=== PATIENT | male | born 1955 | race Caucasian/White ===

== ENCOUNTER 2023-08-13 16:48 | Inpatient (IN) ==
[2023-08-13 17:34] LABS: ABS Basophils 0.1 10^3/uL (0.0-0.1); ABS Lymphocytes 0.9 10^3/uL (1.0-4.8); ABS Monocytes 0.7 10^3/uL (0.0-1.1); ABS Neutrophils 3.8 10^3/uL (1.5-7.6); ABS Nucleated RBC 0.02 10^3/ul; Hematocrit 50.7 % (38-53); Hemoglobin 17.2 g/dL (13.2-16.3); Lymphocyte % 16.5 %; Mean Corpuscular Hemoglobin 30.9 pg (27-33); Mean Corpuscular Hgb Conc 33.8 g/dL (31-36); Mean Corpuscular Volume 91.3 fL (80-97); Mean Platelet Volume 7.4 fL (7.5-11.2); Nucleated Red Blood Cells % 0.4 %/100WBC (0.0-0.8); Platelet Count 117 10^3/uL (150-450); Red Blood Count 5.56 10^6/uL (4.06-5.63); Red Cell Distribution Width 14.3 % (12-17); White Blood Count 5.5 10^3/uL (3.6-10.2)
[2023-08-13] MEDS ORDERED: Albuterol/Ipratropium NEB.SOL (2.5/0.5 MG) 3 ML NEB.SOLN INH ONE (17:37)
[2023-08-13 17:53] LABS: Albumin/Globulin Ratio 1.3 (1-3); C Reactive Protein 18.33 mg/L (<8.01); Calcium 8.6 mg/dL (8.6-10.3); Creatinine, Serum 1.64 mg/dL (0.67-1.17); Potassium 4.5 mmol/L (3.5-5.0); Total Bilirubin 0.6 mg/dL (0.2-1.0)
[2023-08-13 19:06] LABS: High Sensitivity Troponin 1 Hr 141 pg/mL (<20)
[2023-08-13] MEDS ORDERED: Albuterol 2.5mg/3 ml (0.083%) NEB.SOLN INH ONE ×2 (19:08→20:45)
[2023-08-13] MEDS ORDERED: Albuterol (2.5 MG) 0.5 % CONC 0.5 ML NEB.SOLN INH ONE (21:31)
[2023-08-13] MEDS ORDERED: methylPREDNISolone SOD SUCC 125 mg 2 ML VIAL IV ONE (21:37)
[2023-08-13 21:57] LABS: PCO2 Arterial 39 mmHg (35-45); PO2 Arterial 141 mmHg (80-100)
[2023-08-13] MEDS: cefTRIAXone 1 gm/50 mL D5W 1 GM/50 ML BAG IV SCH (22:19)
[2023-08-13] MEDS: Enoxaparin 40 MG/0.4 ML SYR SUBCUT SCH (22:19)
[2023-08-14] MEDS ORDERED: Albuterol (2.5 MG) 0.5 % CONC 0.5 ML NEB.SOLN INH PRN (02:29)
[2023-08-14] MEDS: Albuterol/Ipratropium NEB.SOL (2.5/0.5 MG) 3 ML NEB.SOLN INH SCH ×6 (02:57→23:19)
[2023-08-14 06:05] LABS: ABS Lymphocytes 0.3 10^3/uL (1.0-4.8); ABS Monocytes 0.1 10^3/uL (0.0-1.1); ABS Neutrophils 1.9 10^3/uL (1.5-7.6); ABS Nucleated RBC 0.01 10^3/ul; Hematocrit 46.4 % (38-53); Hemoglobin 16.2 g/dL (13.2-16.3); Lymphocyte % 13.5 %; Mean Corpuscular Hemoglobin 31.4 pg (27-33); Mean Corpuscular Hgb Conc 34.9 g/dL (31-36); Mean Corpuscular Volume 90.2 fL (80-97); Mean Platelet Volume 7.2 fL (7.5-11.2); Nucleated Red Blood Cells % 0.2 %/100WBC (0.0-0.8); Platelet Count 110 10^3/uL (150-450); Red Blood Count 5.14 10^6/uL (4.06-5.63); Red Cell Distribution Width 13.9 % (12-17); White Blood Count 2.4 10^3/uL (3.6-10.2)
[2023-08-14 06:22] LABS: Calcium 8.6 mg/dL (8.6-10.3); Creatinine, Serum 1.83 mg/dL (0.67-1.17); HDL Cholesterol 36.6 mg/dL; Potassium 3.9 mmol/L (3.5-5.0); eGFR CKD-EPI 39.5 (>60)
[2023-08-14] MEDS: Aspirin EC 81 mg TAB.EC (enteric coated) PO SCH (08:45)
[2023-08-14] MEDS: methylPREDNISolone SOD SUCC 40 mg/ml 1 ml VIAL IV SCH ×2 (12:39→22:41)
[2023-08-14] MEDS: Enoxaparin 40 MG/0.4 ML SYR SUBCUT SCH (22:42)
[2023-08-14] MEDS: cefTRIAXone 1 gm/50 mL D5W 1 GM/50 ML BAG IV SCH (22:45)
[2023-08-15] MEDS: methylPREDNISolone SOD SUCC 40 mg/ml 1 ml VIAL IV SCH ×3 (03:46→19:44)
[2023-08-15] MEDS: Albuterol/Ipratropium NEB.SOL (2.5/0.5 MG) 3 ML NEB.SOLN INH SCH ×4 (04:04→19:45)
[2023-08-15 06:47] LABS: ABS Basophils 0.1 10^3/uL (0.0-0.1); ABS Lymphocytes 0.4 10^3/uL (1.0-4.8); ABS Monocytes 0.4 10^3/uL (0.0-1.1); ABS Neutrophils 9.8 10^3/uL (1.5-7.6); Eosinophil % 0.1 %; Hemoglobin 15.8 g/dL (13.2-16.3); Lymphocyte % 4.2 %; Mean Corpuscular Hemoglobin 31.1 pg (27-33); Mean Corpuscular Hgb Conc 34.3 g/dL (31-36); Mean Corpuscular Volume 90.6 fL (80-97); Mean Platelet Volume 7.8 fL (7.5-11.2); Platelet Count 117 10^3/uL (150-450); Red Blood Count 5.07 10^6/uL (4.06-5.63); White Blood Count 10.8 10^3/uL (3.6-10.2)
[2023-08-15 07:13] LABS: Calcium 8.9 mg/dL (8.6-10.3); Creatinine, Serum 1.98 mg/dL (0.67-1.17); Magnesium 2.1 mg/dL (1.9-2.7); eGFR CKD-EPI 35.9 (>60)
[2023-08-15] MEDS: Aspirin EC 81 mg TAB.EC (enteric coated) PO SCH (08:41)
[2023-08-15] MEDS: NS 0.9% 1000 ml BAG 1,000 ML IV SCH (10:58)
[2023-08-15] MEDS: cefTRIAXone 1 gm/50 mL D5W 1 GM/50 ML BAG IV SCH (21:34)
[2023-08-15] MEDS: Enoxaparin 40 MG/0.4 ML SYR SUBCUT SCH (21:34)
[2023-08-16] MEDS: NS 0.9% 1000 ml BAG 1,000 ML IV SCH (01:34)
[2023-08-16] MEDS: methylPREDNISolone SOD SUCC 40 mg/ml 1 ml VIAL IV SCH (03:56)
[2023-08-16 07:34] LABS: ABS Lymphocytes 0.5 10^3/uL (1.0-4.8); ABS Monocytes 0.5 10^3/uL (0.0-1.1); ABS Neutrophils 10.7 10^3/uL (1.5-7.6); ABS Nucleated RBC 0.01 10^3/ul; Hematocrit 42.7 % (38-53); Hemoglobin 14.5 g/dL (13.2-16.3); Lymphocyte % 3.9 %; Mean Corpuscular Hemoglobin 30.9 pg (27-33); Mean Corpuscular Volume 90.8 fL (80-97); Nucleated Red Blood Cells % 0.1 %/100WBC (0.0-0.8); Platelet Count 113 10^3/uL (150-450); Red Cell Distribution Width 13.9 % (12-17); White Blood Count 11.7 10^3/uL (3.6-10.2)
[2023-08-16] MEDS: Albuterol/Ipratropium NEB.SOL (2.5/0.5 MG) 3 ML NEB.SOLN INH SCH ×2 (07:36→13:09)
[2023-08-16 08:00] LABS: Calcium 8.1 mg/dL (8.6-10.3); Creatinine, Serum 1.48 mg/dL (0.67-1.17); Magnesium 1.9 mg/dL (1.9-2.7); Potassium 4.4 mmol/L (3.5-5.0); eGFR CKD-EPI 50.9 (>60)
[2023-08-16] MEDS: Aspirin EC 81 mg TAB.EC (enteric coated) PO SCH (09:52)
[2023-08-16] MEDS ORDERED: Lactated Ringers 1000 ml BAG 1,000 ML IV SCH (10:00)
[2023-08-16] MEDS ORDERED: Albuterol 2.5mg/3 ml (0.083%) NEB.SOLN INH PRN ×2 (10:19→16:02)
[2023-08-16] MEDS ORDERED: Albuterol 2.5mg/3 ml (0.083%) NEB.SOLN INH ONE (10:21)
[2023-08-16] MEDS ORDERED: Albuterol/Ipratropium NEB.SOL (2.5/0.5 MG) 3 ML NEB.SOLN INH PRN (14:25)
[2023-08-16] MEDS: Albuterol HFA INHALER 8 gm MDI INH SCH ×2 (15:11→19:22)
[2023-08-16] MEDS: Enoxaparin 40 MG/0.4 ML SYR SUBCUT SCH (21:34)
[2023-08-16] MEDS: cefTRIAXone 1 gm/50 mL D5W 1 GM/50 ML BAG IV SCH (21:45)
[2023-08-17 07:10] LABS: ABS Lymphocytes 1.1 10^3/uL (1.0-4.8); ABS Monocytes 1.2 10^3/uL (0.0-1.1); ABS Neutrophils 11.6 10^3/uL (1.5-7.6); ABS Nucleated RBC 0.01 10^3/ul; Hematocrit 41.4 % (38-53); Lymphocyte % 7.8 %; Mean Corpuscular Hgb Conc 33.7 g/dL (31-36); Mean Platelet Volume 7.5 fL (7.5-11.2); Platelet Count 138 10^3/uL (150-450); White Blood Count 13.9 10^3/uL (3.6-10.2)
[2023-08-17 07:23] LABS: Calcium 8.5 mg/dL (8.6-10.3); Creatinine, Serum 1.3 mg/dL (0.67-1.17); Potassium 4.6 mmol/L (3.5-5.0); eGFR CKD-EPI 59.5 (>60)
[2023-08-17] MEDS: Albuterol HFA INHALER 8 gm MDI INH SCH ×5 (07:41→20:31)
[2023-08-17] MEDS: Aspirin EC 81 mg TAB.EC (enteric coated) PO SCH (09:26)
[2023-08-17] MEDS ORDERED: Magnesium Hydroxide LIQ 30 ML UDC PO PRN (10:20)
[2023-08-17] MEDS ORDERED: Senna TAB 8.6 mg TAB PO PRN (10:20)
[2023-08-17] MEDS ORDERED: Sulfur Hexaflouride MICROSPHR 25 MG VIAL ONE (13:27)
[2023-08-17] MEDS ORDERED: Tiotropium Brom/Olodaterol MDI (ACUTE) INH SCH (18:00)
[2023-08-17] MEDS: Mometasone 220 MCG MDI INH SCH ×2 (19:17→20:24)
[2023-08-17] MEDS ORDERED: cefTRIAXone VIAL 1,000 MG in NS 0.9% 50 ML 50 ML IVPB SCH (22:00)
[2023-08-17] MEDS: Enoxaparin 40 MG/0.4 ML SYR SUBCUT SCH (22:16)
[2023-08-18] MEDS: Tiotropium Brom/Olodaterol MDI (ACUTE) INH SCH ×2 (07:57→09:09)
[2023-08-18] MEDS: Albuterol HFA INHALER 8 gm MDI INH SCH ×3 (07:58→15:03)
[2023-08-18] MEDS: Aspirin EC 81 mg TAB.EC (enteric coated) PO SCH (08:11)
[2023-08-18 08:44] LABS: Calcium 8.6 mg/dL (8.6-10.3); Creatinine, Serum 1.6 mg/dL (0.67-1.17); Potassium 4.6 mmol/L (3.5-5.0); eGFR CKD-EPI 46.4 (>60)
[2023-08-18] MEDS ORDERED: Lactated Ringers 1000 ml BAG 1,000 ML IV SCH (09:00)
[2023-08-18 10:52] LABS: High Sensitivity Troponin 1 Hr 23 pg/mL (<20)
[2023-08-18 13:01] LABS: High Sensitivity Troponin 3 Hr 21 pg/mL (<20)
[2023-08-18 14:32] VITALS: BP 102/67
== END 2023-08-18 16:53 | disposition home or self-care (01) | DRG 190 ==
LOC: ED 16:48 → EDHOLD 21:40 → MEDTELE 08-14 09:07
PROVIDERS: ADMIT Internal Medicine Pulmonary Disease; ATTEND Student in an Organized Health Care Education/Training Program